=== PATIENT | female | born 1935 | race Caucasian/White ===

== ENCOUNTER → 2016-10-03 | Outpatient (CLI) | payer MEDICARE, OTHER ==
[~2016-10-03] MED LIST: ADULT TUSS100 MG/5 M PO; AMARYL2 MG PO; ASPIRIN EC81 MG PO; BENADRYL25 MG PO; BENZONATATE200 MG PO; CALCIUM 600 +1 EAC1 PO; COLACE100 MG PO; DULCOLAX10 MG R; FEOSOL325 MG PO; LACTAID1 TAB PO; LANTUS (IN100 UNIT/M SUB-Q; LASIX20 MG PO; LEVAQUIN 750 M750 MG PO; LEVOTHROID (SY50 MCG PO; LIPITOR40 MG PO; MILK OF MA400 MG/5 M PO; PLAVIX75 MG PO; TOPROL XL25 MG PO; TYLENOL325 MG PO; ZOFRAN4 MG PO
== END | disposition disaster alternative care site (69) ==
LOC: GAMB 16:49
DX: R06.02 Shortness of breath (principal); J40 Bronchitis, not specified as acute or chronic; Z79.82 Long term (current) use of aspirin; Z79.899 Other long term (current) drug therapy; Z88.1 Allergy status to other antibiotic agents
CPT/HCPCS: A0422; A0425; A0427